=== PATIENT | male | born 1995 | race Caucasian/White ===

== ENCOUNTER 2019-07-08 12:34 | Emergency (ER) | payer OTHER ==
[~2019-07-08] VITALS: Ht 170.2 cm; Wt 67.0 kg
[2019-07-08] MEDS ORDERED: SODIUM CHLORIDE 0.9% 1,000 ML IV ONE (13:08)
[2019-07-08 13:22] LABS: BASOPHILS # (AUTO) 0.03 x10^3/uL (0-0.1); BASOPHILS % (AUTO) 0 % (0-1); EOSINOPHILS # (AUTO) 0.01 x10^3/uL (0-0.4); EOSINOPHILS % (AUTO) 0 % (1-7); LYMPHOCYTES # (AUTO) 1.12 x10^3/uL (1-3.4); LYMPHOCYTES % (AUTO) 13 % (22-44); MD NO; MEAN CORPUSCULAR HGB CONC 33.8 g/dL (33.2-36.2); MEAN CORPUSCULAR VOLUME 88.9 fL (81-97); MEAN PLATELET VOLUME 8.3 fL (7.4-10.4); MONOCYTES # (AUTO) 0.36 x10^3/uL (0.2-0.8); MONOCYTES % (AUTO) 4 % (2-9); NEUTROPHILS # (AUTO) 6.95 x10^3/uL (1.8-6.8); NEUTROPHILS % (AUTO) 82 % (42-75); PLATELET COUNT 232 x10^3/uL (130-400); RED BLOOD COUNT 5.08 x10^6/uL (4.38-5.82); RED CELL DISTRIBUTION WIDTH 12.6 % (9.4-14.8)
[2019-07-08] MEDS ORDERED: ZIPRASIDONE 20 MG INJ IM ONE ×2 (13:25→13:30)
--- NOTE | 2019-07-08 13:25 | NUR ---
REPORT TO AURELIA FENTON.
--- NOTE | 2019-07-08 13:26 | NUR ---
REPORT TO AURELIA FENTON
[2019-07-08] MEDS ORDERED: SODIUM CHLORIDE FLUSH 10ML SYR IVF ONE (13:30)
[2019-07-08] MEDS ORDERED: SODIUM CHLORIDE 0.9% 1,000ML IVBOLUS ONE (13:30)
[2019-07-08 13:33] LABS: ALANINE AMINOTRANSFERASE 25 U/L (12-78); ALBUMIN 4.8 g/dL (3.4-5.0); ANION GAP 9 mmol/L (5-15); CALCIUM 9.2 mg/dL (8.5-10.1); CHLORIDE 106 mmol/L (98-107); CREATININE 1.35 mg/dL (0.7-1.3)
[2019-07-08 13:35] LABS: ALKALINE PHOSPHATASE 93 U/L (45-117); BILIRUBIN,TOTAL 1.5 mg/dL (0.2-1.0); TOTAL PROTEIN 8.2 g/dL (6.4-8.2)
--- NOTE | 2019-07-08 13:36 | NUR ---
BREAK NOTE FOR RN: PT SITTING BACK IN BED. REPORTS ABDOMINAL CRAMPING PERSISTING AT THIS TIME. PT GIVEN ALCOHOL WIPE FOR NAUSEA. MOTHER REMAINS AT BEDSIDE. SIDE RAILS UP, CALL LIGHT IN REACH.
[2019-07-08] MEDS ORDERED: METOCLOPRAMIDE 5 MG/ML, 2ML ONE (14:15)
--- NOTE | 2019-07-08 14:27 | NUR ---
DESPITE BEING MEDICATED WITH GEODON NOTED ON APR, CONTINUES TO VOMIT. MADE AWARE AND ADDITONAL ORDERS RECEIVED FOR REGLAN. MEDICATED NOTED ON MAR
[2019-07-08] MEDS ORDERED: METOCLOPRAMIDE 5 MG/ML, 2ML IVPush ONE (14:30)
--- NOTE | 2019-07-08 14:51 | NUR ---
NAUSEATED BUT HAS NOT VOMITED SINCE RECEIVING REGLAN
--- NOTE | 2019-07-08 15:55 | NUR ---
TOLERATED ICE WITHOUT VOMITING. CONTINUES TO FEEL VERY NAUSEATED. GIVEN A SMALL AMOUNT OF JUICE
--- NOTE | 2019-07-08 16:06 | NUR ---
PT VOMITED AFTER DRINKING A SMALL AMOUNT OF JUICE
[2019-07-08] MEDS ORDERED: ONDANSETRON 2MG/ML, 2ML ONE (16:14)
--- NOTE | 2019-07-08 16:18 | NUR ---
ADDITIONALLY MEDICATED NOTED ON MAR FOR N/V
[2019-07-08] MEDS ORDERED: ONDANSETRON 2MG/ML, 2ML IVPush ONE (16:30)
--- NOTE | 2019-07-08 17:00 | NUR ---
PT CONTINUES TO FEEL NAUSEATED WITH NO VOMITING SINCE LATEST PO CHALLENGE
--- NOTE | 2019-07-08 17:35 | NUR ---
RE-EVALUATED PT. AWAITING DISPO
[2019-07-08 17:45] VITALS: BP 112/87
== END 2019-07-08 17:48 | disposition home or self-care (01) ==
LOC: ED 16:37
DX: R11.2 Nausea with vomiting, unspecified (principal); E86.0 Dehydration
CPT/HCPCS: 36415; 80053; 83690; 85025; 96361; 96372; 96374; 96375; 99284; J2405; J2765; J3486; J7030